=== PATIENT | male | born 1940 | race Two or more races ===

== ENCOUNTER 2016-12-21 11:34 | Inpatient (IN) | payer MEDICARE, OTHER ==
[~2016-12-21] VITALS: Ht 165.1 cm; Wt 60.3 kg
[2016-12-21] MEDS ORDERED: MAG HYDROX/AL HYDROX/SIMETH 30 ML UDC PO PRN (13:30)
[2016-12-21] MEDS ORDERED: LORAZEPAM 0.5 MG TABLET PO PRN (13:30)
[2016-12-21] MEDS ORDERED: MAGNESIUM HYDROXIDE 30 ML UDC PO PRN (13:30)
[2016-12-21 16:00] VITALS: BP 122/57
[2016-12-21] MEDS ORDERED: LORAZEPAM 1 MG TABLET PO PRN (17:00)
[2016-12-21 20:09] VITALS: BP 120/58
[2016-12-21] MEDS ORDERED: THIAMINE HCL 100 MG TABLET PO ONE (21:00)
[2016-12-21] MEDS: ACETAMINOPHEN 325 MG TABLET PO PRN (21:26)
[2016-12-21] MEDS: TEMAZEPAM 7.5 MG CAPSULE PO PRN (23:51)
[2016-12-22] MEDS: MULTIVIT, IRON, MIN NO. 8, FA 1 TAB TABLET PO SCH (09:06)
[2016-12-22] MEDS: THIAMINE HCL 100 MG TABLET PO SCH (09:06)
[2016-12-22] MEDS: FOLIC ACID 1 MG TABLET PO SCH (09:07)
[2016-12-22] MEDS: ESCITALOPRAM OXALATE (10 MG) 10 MG TABLET PO SCH (09:07)
[2016-12-22] MEDS: CYANOCOBALAMIN 500 MCG TABLET PO SCH (09:07)
[2016-12-22 09:11] VITALS: BP 102/50
[2016-12-22 14:54] LABS: BASOPHILS % (AUTO) 0.5 % (0.0-2.0); DIFF TOTAL % 100 %; EOSINOPHILS # (AUTO) 0.3 /CMM (0.0-0.7); HEMATOCRIT 38 % (39-51); HEMOGLOBIN 12.5 g/dL (13.5-17.5); LYMPHOCYTES # (AUTO) 1.8 /CMM (0.8-4.8); LYMPHOCYTES % (AUTO) 22.9 % (20.0-44.0); MEAN CORPUSCULAR HEMOGLOBIN 31 PG (26.0-33.0); MEAN CORPUSCULAR HGB CONC 33 g/dl (31.0-36.0); MEAN CORPUSCULAR VOLUME 93 fL (80-96); MONOCYTES # (AUTO) 0.9 /CMM (0.1-1.30); MONOCYTES % (AUTO) 11.1 % (2.0-12.0); NEUTROPHILS # (AUTO) 4.7 /CMM (1.8-8.9); NEUTROPHILS % (AUTO) 61.5 % (43.0-81.0); PLATELET COUNT (AUTO) 262 /CMM (150-450); WHITE BLOOD COUNT (AUTO) 7.7 K/uL (4.3-11.0)
[2016-12-22 15:11] LABS: INR 1.04 (0.87-1.13); PROTHROMBIN TIME 11.2 SECS (9.5-12.7)
[2016-12-22 15:41] VITALS: BP 144/74
[2016-12-22 19:44] LABS: CALCIUM, SERUM 8.6 mg/dL (8.5-10.1); CREATININE 0.9 mg/dL (0.6-1.3); POTASSIUM 4.2 mmol/L (3.5-5.1)
[2016-12-22 19:51] LABS: ALBUMIN 3.4 g/dL (3.4-5.0); BILIRUBIN,TOTAL 0.5 mg/dL (0.2-1.0); TOTAL PROTEIN, SERUM 7.4 g/dL (6.4-8.2)
[2016-12-22 20:00] VITALS: BP 106/50
[2016-12-22] MEDS: ACETAMINOPHEN 325 MG TABLET PO PRN (21:03)
[2016-12-22] MEDS: TEMAZEPAM 7.5 MG CAPSULE PO PRN (21:03)
[2016-12-23] MEDS: THIAMINE HCL 100 MG TABLET PO SCH (07:59)
[2016-12-23] MEDS: MULTIVIT, IRON, MIN NO. 8, FA 1 TAB TABLET PO SCH (07:59)
[2016-12-23] MEDS: FOLIC ACID 1 MG TABLET PO SCH (07:59)
[2016-12-23] MEDS: CYANOCOBALAMIN 500 MCG TABLET PO SCH (07:59)
[2016-12-23] MEDS: ESCITALOPRAM OXALATE (10 MG) 10 MG TABLET PO SCH (07:59)
[2016-12-23 08:00] VITALS: BP 135/71
[2016-12-23 16:05] VITALS: BP 124/58
[2016-12-23 20:00] VITALS: BP 121/68
[2016-12-23] MEDS: ACETAMINOPHEN 325 MG TABLET PO PRN (21:11)
[2016-12-23] MEDS: TEMAZEPAM 7.5 MG CAPSULE PO PRN (21:11)
[2016-12-24 08:00] VITALS: BP 117/66
[2016-12-24] MEDS: MULTIVIT, IRON, MIN NO. 8, FA 1 TAB TABLET PO SCH (08:37)
[2016-12-24] MEDS: FOLIC ACID 1 MG TABLET PO SCH (08:37)
[2016-12-24] MEDS: ESCITALOPRAM OXALATE (10 MG) 10 MG TABLET PO SCH (08:37)
[2016-12-24] MEDS: CYANOCOBALAMIN 500 MCG TABLET PO SCH (08:37)
[2016-12-24] MEDS: THIAMINE HCL 100 MG TABLET PO SCH (08:37)
[2016-12-24 16:00] VITALS: BP 119/70
[2016-12-24 20:00] VITALS: BP 112/91
[2016-12-24 20:01] VITALS: BP 112/71
[2016-12-24] MEDS: ACETAMINOPHEN 325 MG TABLET PO PRN (20:06)
[2016-12-24] MEDS: TEMAZEPAM 7.5 MG CAPSULE PO PRN (21:21)
[2016-12-25 08:00] VITALS: BP 110/55
[2016-12-25] MEDS: THIAMINE HCL 100 MG TABLET PO SCH (08:25)
[2016-12-25] MEDS: ESCITALOPRAM OXALATE (10 MG) 10 MG TABLET PO SCH (08:25)
[2016-12-25] MEDS: MULTIVIT, IRON, MIN NO. 8, FA 1 TAB TABLET PO SCH (08:25)
[2016-12-25] MEDS: CYANOCOBALAMIN 500 MCG TABLET PO SCH (08:25)
[2016-12-25] MEDS: FOLIC ACID 1 MG TABLET PO SCH (08:25)
[2016-12-25 16:14] VITALS: BP 122/79
[2016-12-25] MEDS: ACETAMINOPHEN 325 MG TABLET PO PRN (18:17)
[2016-12-25 20:00] VITALS: BP_SYST 101; BP_SYST 127; BP_DIAS 66; BP_DIAS 72
[2016-12-26 08:00] VITALS: BP 128/60
[2016-12-26] MEDS: CYANOCOBALAMIN 500 MCG TABLET PO SCH (08:34)
[2016-12-26] MEDS: ESCITALOPRAM OXALATE (10 MG) 10 MG TABLET PO SCH (08:35)
[2016-12-26] MEDS: MULTIVIT, IRON, MIN NO. 8, FA 1 TAB TABLET PO SCH (08:35)
[2016-12-26] MEDS: THIAMINE HCL 100 MG TABLET PO SCH (08:35)
[2016-12-26] MEDS: FOLIC ACID 1 MG TABLET PO SCH (09:05)
[2016-12-26 16:00] VITALS: BP 133/66
[2016-12-26 20:08] VITALS: BP 131/71
[2016-12-27 08:00] VITALS: BP 137/81
[2016-12-27] MEDS: CYANOCOBALAMIN 500 MCG TABLET PO SCH (08:31)
[2016-12-27] MEDS: FOLIC ACID 1 MG TABLET PO SCH (08:31)
[2016-12-27] MEDS: THIAMINE HCL 100 MG TABLET PO SCH (08:31)
[2016-12-27] MEDS: ESCITALOPRAM OXALATE (10 MG) 10 MG TABLET PO SCH (08:31)
[2016-12-27] MEDS: MULTIVIT, IRON, MIN NO. 8, FA 1 TAB TABLET PO SCH (08:31)
[2016-12-27] MEDS: CELECOXIB 100 MG CAPSULE PO SCH ×2 (15:19→21:34)
[2016-12-27 16:00] VITALS: BP 129/62
[2016-12-27 19:55] VITALS: BP 128/81
[2016-12-27] MEDS: TEMAZEPAM 7.5 MG CAPSULE PO PRN (21:34)
[2016-12-28 06:55] LABS: BASOPHILS # (AUTO) 0.1 /CMM (0.0-0.2); BASOPHILS % (AUTO) 0.5 % (0.0-2.0); DIFF TOTAL % 100 %; EOSINOPHILS # (AUTO) 0.2 /CMM (0.0-0.7); EOSINOPHILS % (AUTO) 2.2 % (0.0-6.0); HEMATOCRIT 39 % (39-51); HEMOGLOBIN 12.9 g/dL (13.5-17.5); LYMPHOCYTES # (AUTO) 3.5 /CMM (0.8-4.8); LYMPHOCYTES % (AUTO) 35.4 % (20.0-44.0); MEAN CORPUSCULAR HEMOGLOBIN 31 PG (26.0-33.0); MEAN CORPUSCULAR HGB CONC 33 g/dl (31.0-36.0); MEAN CORPUSCULAR VOLUME 93 fL (80-96); MONOCYTES # (AUTO) 0.6 /CMM (0.1-1.30); MONOCYTES % (AUTO) 6.3 % (2.0-12.0); NEUTROPHILS # (AUTO) 5.6 /CMM (1.8-8.9); NEUTROPHILS % (AUTO) 55.6 % (43.0-81.0); PLATELET COUNT (AUTO) 313 /CMM (150-450); RED BLOOD CELL COUNT(AUTO) 4.18 MIL/uL (4.5-6.0)
[2016-12-28 08:00] VITALS: BP 111/69
[2016-12-28] MEDS: CELECOXIB 100 MG CAPSULE PO SCH ×2 (09:56→20:15)
[2016-12-28] MEDS: ESCITALOPRAM OXALATE (10 MG) 10 MG TABLET PO SCH (09:56)
[2016-12-28] MEDS: FOLIC ACID 1 MG TABLET PO SCH (09:56)
[2016-12-28] MEDS: THIAMINE HCL 100 MG TABLET PO SCH (09:56)
[2016-12-28] MEDS: CYANOCOBALAMIN 500 MCG TABLET PO SCH (09:56)
[2016-12-28] MEDS: MULTIVIT, IRON, MIN NO. 8, FA 1 TAB TABLET PO SCH (09:56)
[2016-12-28 16:00] VITALS: BP 119/60
[2016-12-28 21:06] VITALS: BP 122/71
[2016-12-29 08:00] VITALS: BP 122/64
[2016-12-29] MEDS: FOLIC ACID 1 MG TABLET PO SCH (09:57)
[2016-12-29] MEDS: THIAMINE HCL 100 MG TABLET PO SCH (09:58)
[2016-12-29] MEDS: CELECOXIB 100 MG CAPSULE PO SCH (09:58)
[2016-12-29] MEDS: ESCITALOPRAM OXALATE (10 MG) 10 MG TABLET PO SCH (09:58)
[2016-12-29] MEDS: CYANOCOBALAMIN 500 MCG TABLET PO SCH (09:58)
[2016-12-29] MEDS: MULTIVIT, IRON, MIN NO. 8, FA 1 TAB TABLET PO SCH (09:58)
== END 2016-12-29 14:10 | DRG 885 ==
LOC: GPS 12:48
PROVIDERS: ADMIT Psychiatry & Neurology Psychiatry; ATTEND Nurse Practitioner Acute Care
DX: F33.2 Major depressive disorder, recurrent severe without psychotic features (principal); F12.10 Cannabis abuse, uncomplicated; F10.20 Alcohol dependence, uncomplicated; Z73.6 Limitation of activities due to disability; F03.90 Unspecified dementia, unspecified severity, without behavioral disturbance, psychotic disturbance, mood disturbance, and anxiety; M19.90 Unspecified osteoarthritis, unspecified site; F29 Unspecified psychosis not due to a substance or known physiological condition
CPT/HCPCS: 36415; 80053-TC; 80061-TC; 82962-TC; 83690-TC; 83735-TC; 84100-TC; 85025-TC; 85610-TC; 87081-TC

== ENCOUNTER 2025-06-19 18:24 | Inpatient (IN) | payer MEDICARE, OTHER ==
[~2025-06-19] VITALS: Ht 162.6 cm; Wt 60.8 kg
[2025-06-19] MEDS ORDERED: ACET325T53 PO (19:55)
[2025-06-19] MEDS ORDERED: IBUP-1957 PO (19:55)
[2025-06-19] MEDS ORDERED: APIX5TAB PO (19:55)
[2025-06-19] MEDS ORDERED: THIA100T88 PO (19:55)
[2025-06-19] MEDS ORDERED: MELA3TAB41 PO (19:55)
[2025-06-19] MEDS ORDERED: LORA-258 PO (19:55)
[2025-06-19] MEDS ORDERED: POLY15DR31 EACHEYE (19:55)
[2025-06-19] MEDS ORDERED: BISA10SU11 RC (19:55)
[2025-06-19] MEDS ORDERED: POTA-10 PO (19:55)
[2025-06-19] MEDS ORDERED: MULT-213 PO (19:55)
[2025-06-19] MEDS ORDERED: CLON0.1T PO (19:55)
[2025-06-19] MEDS ORDERED: FURO20TA4 PO (19:55)
[2025-06-19] MEDS ORDERED: MAGN400O6 PO (19:55)
[2025-06-19] MEDS ORDERED: NA P133E RC (19:55)
[2025-06-19] MEDS ORDERED: FOLI0.8T3 PO (19:55)
[2025-06-19] MEDS ORDERED: LIDO73LI TP (19:55)
[2025-06-19] MEDS ORDERED: DIVA125C5 PO (19:55)
[2025-06-19 20:06] LABS: PLATELET COUNT (AUTO) 283 K/uL (150-450); RED BLOOD CELL COUNT(AUTO) 4.19 MIL/uL (4.5-6.0); RED CELL DISTRIBUTION WIDTH 16.6 % (11.5-15.0); WHITE BLOOD COUNT (AUTO) 8.7 K/uL (4.3-11.0)
[2025-06-19 20:16] LABS: CALCIUM, SERUM 8.5 mg/dL (8.5-10.1); CREATININE 0.9 mg/dL (0.6-1.3); SODIUM SERUM 139 mmol/L (136-145); UREA NITROGEN, BLOOD 22 mg/dL (7-18)
[2025-06-19 20:22] LABS: ALCOHOL, BLOOD < 3 mg/dL (0-10); ASPARTATE AMINOTRANSFERASE 25 U/L (15-37); TOTAL PROTEIN, SERUM 7.8 g/dL (6.4-8.2)
[2025-06-19 22:53] LABS: APPEARANCE,URINE CLEAR (CLEAR); BLOOD, URINE NEGATIVE Ery/uL (NEGATIVE); LEUKOCYTE ESTERASE ,URINE NEGATIVE (NEGATIVE); NITRITE, URINE NEGATIVE (NEGATIVE); UGLUCOSE NEGATIVE (NEGATIVE)
[2025-06-19 22:57] LABS: ADD URINE CULTURE NO; SQUAMOUS EPITHELIAL CELL,UR None Seen /HPF (None Seen)
[2025-06-19 23:04] LABS: AMPHETAMINE, URINE NEGATIVE (NEGATIVE); BARBITURATE, URINE NEGATIVE (NEGATIVE); BENZODIAZEPINE, URINE NEGATIVE (NEGATIVE); CANNABINOID, URINE NEGATIVE (NEGATIVE); COCCAINE, URINE NEGATIVE (NEGATIVE); OPIATE, URINE NEGATIVE (NEGATIVE)
[2025-06-20] MEDS: BLOOD SUGAR DIAGNOSTIC 1 EACH STRIP IN ONE (05:00)
[2025-06-20] MEDS ORDERED: MAG HYDROX/AL HYDROX/SIMETH 30 ML UDC PO PRN (05:00)
[2025-06-20] MEDS ORDERED: MAGNESIUM HYDROXIDE 30 ML UDC PO PRN ×2 (05:00→21:30)
[2025-06-20 05:15] VITALS: BP 125/76; TEMP 98; O2SAT 98
[2025-06-20 08:00] VITALS: BP 122/83; TEMP 97.7; O2SAT 98
[2025-06-20] MEDS: OXCARBAZEPINE 150 MG TABLET PO SCH (11:57)
[2025-06-20 16:00] VITALS: BP 108/60; TEMP 94.6; O2SAT 99
[2025-06-20 20:20] VITALS: BP 124/64; TEMP 97.5; O2SAT 98
[2025-06-20] MEDS: QUETIAPINE FUMARATE 25 MG TABLET PO SCH (20:30)
[2025-06-20] MEDS: IBUPROFEN 400 MG TABLET PO PRN (21:18)
[2025-06-20] MEDS ORDERED: ACETAMINOPHEN 325 MG TABLET PO PRN (21:30)
[2025-06-20] MEDS ORDERED: BISACODYL SUPP (10 MG) 10 MG/SUPP.RECT SUPP.RECT RC PRN (21:30)
[2025-06-20] MEDS ORDERED: IBUPROFEN 800 MG TABLET PO PRN (21:30)
[2025-06-20] MEDS ORDERED: NA PHOS,M-B/NA PHOS,DI-BA 1 EA ENEMA RC PRN (21:30)
[2025-06-20] MEDS ORDERED: CLONIDINE HCL 0.1 MG TABLET PO PRN (21:30)
[2025-06-20] MEDS ORDERED: POLYVINYL ALCOHOL 15 ML BOTTLE EACHEYE PRN (23:00)
[2025-06-21 08:34] LABS: ASPARTATE AMINOTRANSFERASE 23.0 U/L (15-37); CALCIUM, SERUM 8.5 mg/dL (8.5-10.1); CREATININE 0.7 mg/dL (0.6-1.3); SODIUM SERUM 139.0 mmol/L (136-145); TOTAL PROTEIN, SERUM 7.0 g/dL (6.4-8.2); UREA NITROGEN, BLOOD 22.0 mg/dL (7-18)
[2025-06-21 08:54] VITALS: BP 122/70; TEMP 98; O2SAT 96
[2025-06-21 08:55] LABS: CREATININE 0.8 mg/dL (0.6-1.3)
[2025-06-21] MEDS: FUROSEMIDE 20 MG TABLET PO SCH (09:38)
[2025-06-21] MEDS: THIAMINE HCL 100 MG TABLET PO SCH (09:39)
[2025-06-21] MEDS: POTASSIUM CHLORIDE 10 MEQ TABLET.SA PO SCH (09:39)
[2025-06-21] MEDS: FOLIC ACID 1 MG TABLET PO SCH (09:39)
[2025-06-21] MEDS: MULTIVIT W/MINERALS 1 TAB TABLET PO SCH (09:39)
[2025-06-21] MEDS: APIXABAN 5 MG TABLET PO SCH (09:40)
[2025-06-21 10:47] LABS: LDL 77 mg/dL (0-99)
[2025-06-21 16:00] VITALS: BP 111/61; TEMP 97.9; O2SAT 100
[2025-06-21 20:49] VITALS: BP 118/72; TEMP 97.8; O2SAT 100
[2025-06-21] MEDS: ZOLPIDEM TARTRATE 5 MG TABLET PO PRN (22:11)
[2025-06-22 08:00] VITALS: BP 130/76; TEMP 98.6; O2SAT 98
[2025-06-22] MEDS ORDERED: LIDOCAINE SOLN 4% 50 ML BOTTLE TP PRN (12:00)
[2025-06-22 16:00] VITALS: BP 124/57; TEMP 97.7; O2SAT 98
[2025-06-22] MEDS: IBUPROFEN 400 MG TABLET PO PRN (18:41)
[2025-06-22 21:18] VITALS: BP 104/52; TEMP 97.7; O2SAT 97
[2025-06-23 08:00] VITALS: BP 128/77; TEMP 98.1; O2SAT 98
[2025-06-23 16:00] VITALS: BP 109/59; TEMP 98.8; O2SAT 95
[2025-06-23 20:46] VITALS: BP_SYST 122; BP_SYST 95; BP_DIAS 55; BP_DIAS 57; TEMP 98; TEMP 98.2; O2SAT 98
[2025-06-24 08:00] VITALS: BP 118/68; TEMP 98.7; O2SAT 97
[2025-06-24 16:00] VITALS: BP 117/56; TEMP 97.9; O2SAT 96
[2025-06-24] MEDS: OXCARBAZEPINE 150 MG TABLET PO SCH (17:00)
[2025-06-24 20:00] VITALS: BP 135/71; TEMP 98.3; O2SAT 96
[2025-06-24 20:15] VITALS: BP 135/71; TEMP 98.3; O2SAT 96
[2025-06-24] MEDS: QUETIAPINE FUMARATE 25 MG TABLET PO SCH (20:30)
[2025-06-25 08:00] VITALS: BP 131/72; TEMP 97.7; O2SAT 97
[2025-06-25] MEDS: QUETIAPINE FUMARATE 25 MG TABLET PO PRN (12:38)
[2025-06-25 16:00] VITALS: BP 101/59; TEMP 97.8; O2SAT 98
[2025-06-25 20:00] VITALS: BP 111/58; TEMP 98; O2SAT 96
[2025-06-25 20:29] VITALS: BP 111/58; TEMP 98; O2SAT 96
[2025-06-26 08:00] VITALS: BP 133/67; TEMP 98.8; O2SAT 99
[2025-06-26 16:00] VITALS: BP 98/62; TEMP 98.2; O2SAT 98
[2025-06-26 20:22] VITALS: BP 113/56; TEMP 98.1; O2SAT 98
[2025-06-27 08:00] VITALS: BP 120/76; TEMP 97.8; O2SAT 96
[2025-06-27] MEDS: OXCARBAZEPINE 150 MG TABLET PO SCH ×2 (13:33→16:52)
[2025-06-27 16:00] VITALS: BP 117/78; TEMP 97.8; O2SAT 97
[2025-06-27 20:00] VITALS: BP 135/99; TEMP 99; O2SAT 98
[2025-06-28 08:00] VITALS: BP 120/59; TEMP 97.8; O2SAT 96
[2025-06-28] MEDS: ACETAMINOPHEN 325 MG TABLET PO PRN (09:35)
[2025-06-28 16:08] VITALS: BP 107/62; TEMP 97.9; O2SAT 94
[2025-06-28 17:20] VITALS: O2SAT 95
[2025-06-28 17:20] LABS: PLATELET COUNT (AUTO) 297 K/uL (150-450); RED BLOOD CELL COUNT(AUTO) 4.81 MIL/uL (4.5-6.0); RED CELL DISTRIBUTION WIDTH 17.4 % (11.5-15.0); WHITE BLOOD COUNT (AUTO) 27.9 K/uL (4.3-11.0)
[2025-06-28] MEDS: ALBUTEROL FS 2.5 MG/0.5 ML VIAL.NEB NEB SCH (17:20)
[2025-06-28 17:28] LABS: CALCIUM, SERUM 9.1 mg/dL (8.5-10.1); CREATININE 1.7 mg/dL (0.6-1.3); SODIUM SERUM 139.0 mmol/L (136-145); UREA NITROGEN, BLOOD 38.0 mg/dL (7-18)
[2025-06-28 17:33] VITALS: O2SAT 98
[2025-06-28 17:34] LABS: ASPARTATE AMINOTRANSFERASE 92.0 U/L (15-37); TOTAL PROTEIN, SERUM 8.8 g/dL (6.4-8.2)
[2025-06-28] MEDS: LEVOFLOXACIN (250MG) 250 MG TABLET PO SCH (18:10)
[2025-06-28 18:27] LABS: APPEARANCE,URINE CLEAR (CLEAR); BLOOD, URINE 1+ Ery/uL (NEGATIVE); LEUKOCYTE ESTERASE ,URINE NEGATIVE (NEGATIVE); NITRITE, URINE NEGATIVE (NEGATIVE); UGLUCOSE NEGATIVE (NEGATIVE)
[2025-06-28 18:41] LABS: ADD URINE CULTURE NO; SQUAMOUS EPITHELIAL CELL,UR None Seen /HPF (None Seen)
[2025-06-28] MEDS: METRONIDAZOLE 500 MG TABLET PO SCH (19:37)
[2025-06-28 19:45] VITALS: BP 115/52; TEMP 99; O2SAT 95
== END 2025-06-28 20:20 | disposition short-term general hospital (02) | DRG 885 ==
LOC: ER 18:36 → GPS 06-20 02:09
PROVIDERS: ADMIT Psychiatry & Neurology Psychiatry; ATTEND Nurse Practitioner Acute Care
DX: F39 Unspecified mood [affective] disorder (principal); E44.1 Mild protein-calorie malnutrition; F03.911 Unspecified dementia, unspecified severity, with agitation; F03.92 Unspecified dementia, unspecified severity, with psychotic disturbance; F03.93 Unspecified dementia, unspecified severity, with mood disturbance; I48.92 Unspecified atrial flutter; D68.59 Other primary thrombophilia; I10 Essential (primary) hypertension; M19.90 Unspecified osteoarthritis, unspecified site; F19.21 Other psychoactive substance dependence, in remission; I48.91 Unspecified atrial fibrillation; Z95.0 Presence of cardiac pacemaker; Z86.59 Personal history of other mental and behavioral disorders; I25.10 Atherosclerotic heart disease of native coronary artery without angina pectoris; E88.09 Other disorders of plasma-protein metabolism, not elsewhere classified; Z79.01 Long term (current) use of anticoagulants; Z79.899 Other long term (current) drug therapy; D64.9 Anemia, unspecified; R79.89 Other specified abnormal findings of blood chemistry; M25.562 Pain in left knee
CPT/HCPCS: 36415; 71045-TC; 73560-TC; 80048-TC; 80053-TC; 80061-TC; 80076-TC; 81001; 82140-TC; 82565-TC; 82962-TC; 84484-TC; 85025-TC; 87040-TC; 87081-TC; 92526; 92611; 94799-TC; 97110-TC; 97116-TC; 97530-TC; G0480